=== PATIENT | female | born 1980 | race African-American/Black ===

== ENCOUNTER 2017-02-16 19:56 | Emergency (ER) | payer MEDICAID ==
[~2017-02-16] VITALS: Ht 162.6 cm; Wt 68.0 kg
[2017-02-16 20:31] VITALS: BP 145/93
== END 2017-02-17 01:26 | disposition left against medical advice (07) ==
LOC: EDBD 19:56 → ER 19:56
DX: G43.909 Migraine, unspecified, not intractable, without status migrainosus (principal); Z53.21 Procedure and treatment not carried out due to patient leaving prior to being seen by health care provider
CPT/HCPCS: 70450